=== PATIENT | male | born 1975 | race Caucasian/White ===

== ENCOUNTER 2021-01-16 07:30 | Emergency (ER) | payer BC ==
--- NOTE | 2021-01-16 08:23 | EDM.PDOC ---
ED HPI GENERAL MEDICAL PROBLEM - General Chief Complaint: General Stated Complaint: EYE DISCOMFORT/POSSIBLE PINK EYE Time Seen by Provider: 01/16/21 07:45 - Related Data Allergies Allergy/AdvReac Type Severity Reaction Status Date / Time Sulfa (Sulfonamide Allergy Hives Verified 01/16/21 08:10 Antibiotics) Home Meds: Home Meds Erythromycin Base [Erythromycin 0.5% Ophth Oint] 1 applic OP Q6H 5 Days #1 gm 01/16/21 [Rx] Losartan Potassium 100 mg PO DAILY 01/16/21 [History] Olopatadine [Pataday 0.2% Ophth Soln] 1 drop OP DAILY 01/16/21 [History] atorvaSTATin [Lipitor] 10 mg PO BEDTIME 01/16/21 [History] hydroCHLOROthiazide [Hydrochlorothiazide] 25 mg PO DAILY 01/16/21 [History] Past Medical History Other HEENT History: history of pink eye Cardiovascular History: Reports: Hypertension Social & Family History - Tobacco Use Tobacco Use Status *Q: Never Tobacco User ED ROS GENERAL - Review of Systems Review Of Systems: Comprehensive ROS is negative, except as noted in HPI. ED EXAM, GENERAL - Physical Exam Exam: See Below Exam Limited By: No Limitations General Appearance: Alert, WD/WN, No Apparent Distress Eye Exam: Bilateral Eye: EOMI, PERRL, Other (slight conjunctival injection bilat. no purulent drainage, mattering noted.) Nose: Normal Inspection, Normal Mucosa Throat/Mouth: Normal Inspection, Normal Oropharynx, Normal Voice, No Airway Compromise Respiratory/Chest: No Respiratory Distress, No Accessory Muscle Use Cardiovascular: Normal Peripheral Pulses, No Edema Neurological: Alert, Oriented, Normal Cognition, Normal Gait, Normal Reflexes Skin Exam: Warm, Dry, Intact, No Rash Course - Vital Signs Last Recorded V/S: Last Vital Signs Temp 97.0 F 01/16/21 07:43 Pulse 84 01/16/21 07:43 Resp 16 01/16/21 07:43 BP 153/97 H 01/16/21 07:43 Pulse Ox 99 01/16/21 07:43 Departure - Departure Time of Disposition: 08:16 Disposition: Home, Self-Care 01 Condition: Good Clinical Impression: Conjunctivitis Qualifiers: Conjunctivitis type: acute Acute conjunctivitis type: unspecified Laterality: bilateral Qualified Code(s): H10.33 - Unspecified acute conjunctivitis, bilateral - Discharge Information *PRESCRIPTION DRUG MONITORING PROGRAM REVIEWED*: Not Applicable *COPY OF PRESCRIPTION DRUG MONITORING REPORT IN PATIENT MARCIA: Not Applicable Prescriptions: Erythromycin Base [Erythromycin 0.5% Ophth Oint] 1 applic OP Q6H 5 Days #1 gm Referrals: PCP,None [Primary Care Provider] - Additional Instructions: one electronic prescription sent to the pharmacy in [place] one paper prescription for you to use if needed later this appears to be an allergic conjunctivitis don't rub your eyes, this will make it worse cool compresses/ washcloths will help refridgerate your eye drops. using artificial tears will also help by rinsing out allergens don't use contact lenses during this period pataday eye drops use once daily next time you come up: start using eye drops and allergy meds at least 1 week prior to arrival. preferably 2 weeks. Sepsis Event Note (ED) - Evaluation Sepsis Screening Result: No Definite Risk - Focused Exam Vital Signs: Vital Signs Temp Pulse Resp BP Pulse Ox 01/16/21 07:43 97.0 F 84 16 153/97 H 99 - Problem List & Annotations (1) Conjunctivitis SNOMED Code(s): 3773601 Code(s): H10.9 - UNSPECIFIED CONJUNCTIVITIS Status: Acute Current Visit: Yes Qualifiers: Conjunctivitis type: acute Acute conjunctivitis type: unspecified Laterality: bilateral Qualified Code(s): H10.33 - Unspecified acute conjunctivitis, bilateral - Problem List Review Problem List Initiated/Reviewed/Updated: Yes - Assessment/Plan Assessment:: assessment: conjunctivitis plan: antihistamine, artificial tears, mast cell inhibitor eye drops don't rub eyes symptomatic treatment with cool washcloths abx eye ointment if conversion to bacterial conjunctivitis.
== END 2021-01-16 08:33 | disposition home or self-care (01) ==
LOC: LB.ED 07:30 → EDBD 07:30 → LB.ED 08:33
DX: H10.33 Unspecified acute conjunctivitis, bilateral (principal); I10 Essential (primary) hypertension; Z79.899 Other long term (current) drug therapy; Z88.2 Allergy status to sulfonamides
CPT/HCPCS: 99283